=== PATIENT | male | born 1975 | race American Indian/Alaskan Native ===

== ENCOUNTER 2018-11-30 08:39 | Emergency (ER) | payer OTHER ==
[2018-11-30 08:45] VITALS: BP 163/94
--- NOTE | 2018-11-30 09:56 | Emergency Department Report ---
ED Chest Pain HPI - General Chief Complaint: High BP Stated Complaint: CHEST/L ARM PAIN Time Seen by Provider: 11/30/18 09:11 Source: patient Mode of arrival: Ambulatory Limitations: No Limitations - History of Present Illness Initial Comments: 43-year-old male, history of hypertension, presents to ED with complaint of chest pain since yesterday. Patient states he was arguing with his and experienced a sharp chest pain in the left chest and radiated into the left shoulder. Patient states his pain only lasted for 1-2 seconds. Patient reports dull pain this morning. Patient took blood pressure this morning at home and it was normal. Patient denies associated shortness of breath, nausea, vomiting, diaphoresis. Patient does currently have a PCP and is taking amlodipine for hypertension. Denies tobacco and drug use MD Complaint: chest pain -: days(s) (1) Onset: during rest Pain Location: left chest Pain Radiation: other (left shoulder) Severity: mild Severity scale (0 -10): 2 Quality: dull Consistency: now resolved Improves With: nothing Worsens With: nothing re: denies: nausea, vomting, diaphoresis, dyspnea - Related Data Allergies Allergy/AdvReac Type Severity Reaction Status Date / Time No Known Allergies Allergy Unverified 11/30/18 08:41 Heart Score - HEART Score History: Slightly suspicious EKG: Non-specific Age: < 45 Risk factors: 1-2 risk factors Troponin: < normal limit HEART Score: 2 ED Review of Systems ROS: Stated complaint: CHEST/L ARM PAIN Other details as noted in HPI Comment: All other systems reviewed and negative Respiratory: denies: shortness of breath Cardiovascular: chest pain Gastrointestinal: denies: nausea, vomiting ED Past Medical Hx - Past Medical History Previous Medical History?: Yes Hx Hypertension: Yes Additional medical history: Herpes - Surgical History Past Surgical History?: No - Social History Smoking Status: Never Smoker Substance Use Type: Alcohol, Prescribed ED Physical Exam - General Limitations: No Limitations General appearance: alert, in no apparent distress - Head Head exam: Present: atraumatic, normocephalic - Eye Eye exam: Present: normal appearance - ENT ENT exam: Present: mucous membranes moist - Neck Neck exam: Present: normal inspection - Respiratory Respiratory exam: Present: normal lung sounds bilaterally. Absent: respiratory distress - Cardiovascular Cardiovascular Exam: Present: regular rate, normal rhythm - GI/Abdominal GI/Abdominal exam: Present: soft. Absent: distended, tenderness - Extremities Exam Extremities exam: Present: normal inspection - Neurological Exam Neurological exam: Present: alert, oriented X3 - Psychiatric Psychiatric exam: Present: normal affect, normal mood - Skin Skin exam: Present: warm, dry, intact, normal color ED Course Vital Signs 11/30/18 08:42 Temperature 97.9 F Pulse Rate 92 H Respiratory 18 Rate Blood Pressure 163/94 O2 Sat by Pulse 98 Oximetry ED Medical Decision Making - Lab Data Result diagrams: 11/30/18 09:55 11/30/18 09:55 - EKG Data -: EKG Interpreted by Tn EKG shows normal: sinus rhythm, axis, intervals, QRS complexes - EKG Data Interpretation: other (T wave inversions III, aVF, V5, V6) - Radiology Data Radiology results: report reviewed, image reviewed - Medical Decision Making - chest pain resolved, no associated SOB/ nausea/ diaphoresis - EKG shows no ST elevations/ depressions - troponin normal, D-dimer negative - advised outpatient follow-up with PCP - return precautions given - Differential Diagnosis atypical chest pain, ACS, PE Critical care attestation.: If time is entered above; I have spent that time in minutes in the direct care of this critically ill patient, excluding procedure time. ED Disposition Clinical Impression: Chest pain Disposition: DC-01 TO HOME OR SELFCARE Is pt being admited?: No Condition: Stable Instructions: Chest Pain (ED) Referrals: AALIYAH WALLS MD [Referring] - 3-5 Days PRIMARY CARE, [Referring] - 3-5 Days Time of Disposition: 11:14
[2018-11-30 10:09] LABS: Basophils % (Auto) 0.7 % (0.0-1.8); Eosinophils # (Auto) 0.2 K/mm3 (0.0-0.4); Eosinophils % (Auto) 3.2 % (0.0-4.3); Hematocrit 41.2 % (35.5-45.6); Hemoglobin 13.8 gm/dl (11.8-15.2); Lymphocytes # (Auto) 2.9 K/mm3 (1.2-5.4); Lymphocytes % (Auto) 46.4 % (13.4-35.0); Mean Corpuscular HGB Conc 34 % (32-34); Mean Corpuscular Volume 82 fl (84-94); Monocytes # (Auto) 0.4 K/mm3 (0.0-0.8); Monocytes % (Auto) 6.5 % (0.0-7.3); Platelet Count 259 K/mm3 (140-440); Red Cell Distribution Width 15.8 % (13.2-15.2)
--- NOTE | 2018-11-30 10:10 | XRay Report ---
PROCEDURE: XR CHEST ROUTINE 2V TECHNIQUE: Chest, 2 views HISTORY: chest pain COMPARISON: None FINDINGS: The heart size is normal. There is no pulmonary vascular congestion seen. Mediastinal contours are normal. Lungs are clear. There is no pleural effusion seen. There is no pneumothorax seen. IMPRESSION: No acute abnormality identified. This document is electronically signed by Rema Barber MD., November 30 2018 10:07:42 AM ET
[2018-11-30 10:25] LABS: BUN/Creatinine Ratio 11; Blood Urea Nitrogen 11 mg/dL (9-20); Calcium 9.9 mg/dL (8.4-10.2)
[2018-11-30 10:26] LABS: Hemolysis Index 23
[2018-11-30 11:05] LABS: INR 0.9 (0.87-1.13); Partial Thromboplastin Time 27.7 Sec. (24.2-36.6)
== END 2018-11-30 11:28 | disposition home or self-care (01) ==
LOC: ED 08:39
DX: R07.9 Chest pain, unspecified (principal); I10 Essential (primary) hypertension
CPT/HCPCS: 36415; 71046; 80048; 84484; 85025; 85379; 85610; 85730; 93005; 93010